=== PATIENT | female | born 1985 | race Asian ===

== ENCOUNTER 2018-12-27 20:18 | Outpatient (CLI) | payer BC ==
--- NOTE | 2018-12-27 20:30 | NUR ---
G1 at 32 weeks and 4 days arrives to unit with complaint of feeling pressure in RUQ of abdomen. Pt does not think it feels like contractions. Good movement and denies vaginal bleeding. Pt with a history of vaginal bleeding and had additional scans to look at cervical length. EFM and toco explained and applied. Bed in low and locked position. Call light within reach. Plan of care reviewed with patient and spouse. Admission assessment started.
[2018-12-27] MEDS ORDERED: PRENATAL MVI (20:44)
--- NOTE | 2018-12-27 20:50 | NUR ---
Per Dr. Carranza do not perform SVE. Pt with history of vaginal bleeding and was getting additional imaging done to determine cervical length.
[2018-12-27 21:00] VITALS: BP 110/70; PULSE 86; TEMP 98.2
--- NOTE | 2018-12-27 21:05 | NUR ---
IV started in left forearm, lactated ringers bolus infusing to gravity.
--- NOTE | 2018-12-27 22:20 | NUR ---
Pt reports feeling painless tightening when monitor shows contractions. Pt still has RUQ pain intermittently with some contractions. Category [address] Carranza notified, see physician notification. IV discontinued at this time. Monitors removed. Pt discharged home at 2220. Discharge instructions and return precautions reviewed with patient, pt verbalized understanding. Pt seen ambulating off unit with spouse.
== END 2018-12-27 22:20 | disposition home or self-care (01) ==
LOC: LDRO 20:18
DX: O62.9 Abnormality of forces of labor, unspecified (principal); Z3A.32 32 weeks gestation of pregnancy
CPT/HCPCS: J7120

== ENCOUNTER 2018-12-28 11:48 | Outpatient (CLI) | payer BC ==
[~2018-12-28] VITALS: Ht 165.1 cm; Wt 68.2 kg
[~2018-12-28 11:48] MED LIST: PRENATAL MVI
--- NOTE | 2018-12-28 11:55 | NUR ---
Presents to labor and delivery. States has not felt the baby move this morning. Monitor on, heart rate 148 with accelerations noted. Denies pain or discomfort at this time. Assessment done, questions offered and answered.
[2018-12-28 12:04] VITALS: BP 102/67; PULSE 85; TEMP 98.1
[2018-12-28 12:30] VITALS: BP 120/88; PULSE 98
--- NOTE | 2018-12-28 12:45 | NUR ---
Discharge instructions given, verbalizes understanding. 1250 Dismissed to home with spouse. Alert, stable, ambulatory.
== END 2018-12-28 12:50 | disposition home or self-care (01) ==
LOC: LDRO 11:48
DX: O36.8130 Decreased fetal movements, third trimester, not applicable or unspecified (principal); Z3A.32 32 weeks gestation of pregnancy

== ENCOUNTER 2019-02-08 03:24 | Outpatient (CLI) | payer BC ==
[~2019-02-08] VITALS: Ht 165.1 cm; Wt 73.2 kg
--- NOTE | 2019-02-08 03:45 | NUR ---
Pt arrived on unit via wheelchair escorted by and with complaints of contractions that woke her up at 2am. Pt also reports blood on TP when using the bathroom. Pt denies any leaking of fluid and reports normal movement. EFM and toco monitors started. Vital signs WNL. SVE by this RN 0/50/-2 with small amount of blood noted on glove after exam. Plan of care for labor assessment reviewed.
[2019-02-08 03:46] VITALS: BP 118/77; PULSE 73; TEMP 98.1
--- NOTE | 2019-02-08 04:53 | NUR ---
Spoke with Dr. Zavala for an update on pt's status with FHR tracing, SVE with no change and ctx pattern reviewed. Orders for discharge home with precautions and instructions received. Discharge information reviewed with pt and at the bedside. Both verbalized an understanding, agreed with the plan and states no questions or concerns at this time. Pt discharged home escorted off unit by and staff.
== END 2019-02-08 05:00 | disposition home or self-care (01) ==
LOC: LDRO 03:24
DX: O62.9 Abnormality of forces of labor, unspecified (principal); Z3A.38 38 weeks gestation of pregnancy

== ENCOUNTER 2019-02-08 07:58 | Inpatient (IN) | payer BC ==
[2019-02-08] VITALS (51 sets, daily range): BP systolic 87–142; BP diastolic 51–86; PULSE 70–139; TEMP 97.4–98.1
[~2019-02-08] VITALS: Ht 165.1 cm; Wt 73.2 kg
[2019-02-08 08:37] LABS: BASO # 0.1 (0.0-0.2); BASO % 0.4 % (0.0-2.0); EOS # 0.1 (0.0-0.7); EOS % 0.7 % (0-4.0); GRAN # 9.1 (1.4-6.5); GRAN % 77.4 % (42.2-75.2); HEMATOCRIT 37.6 % (37.0-47.0); HEMOGLOBIN 12.3 g/dl (12.5-16.0); LYMPH # 1.9 (1.2-3.4); LYMPH % 15.7 % (20.0-51.0); MEAN CELL VOLUME 82 fl (80.0-100.0); MEAN CORPUSCULAR HEMOGLOBIN 27 pg (27.0-31.0); MEAN CORPUSCULAR HGB CONC 33 g/dl (33.0-37.0); MEAN PLATELET VOLUME 10.3 fl (7.4-10.4); MONO # 0.6 (0.1-0.6); PLATELET COUNT 226 K/mm3 (130-400)
--- NOTE | 2019-02-08 08:40 | NUR ---
Patient feeling contraction pain on her right side. Repositioned patient to far right lateral and patient presses epidural dose button.
--- NOTE | 2019-02-08 08:54 | NUR ---
0750 PATIENT HERE FOR COMPLAINTS THAT CONTRACTIONS ARE GEETING MORE INTENSE. EFM ON FHT 125 BABY VERY ACTIVE. CONTRACTIONS 2-3 MINUTES APART AND PATIENT BREATHING THROUGH EACH ONE. SVE /-1. DR DILL UPDATED AND ORDERS TO ADMIT FOR LABOR. 0800 IV STARTED IN LEFT WRIST AT THIS TIME AND BLOOD DRAWN AND SENT TO LAB. 0805 LR BOLUS HUNG AT THIS TIME. Perri OG CALLED FOR EPIDURAL. ASSESSMENT COMPLETED. PATIENT SITS UP FOR EPIDURAL PLACEMENT. 0815 EPIDURAL PLACED BY Perri OG SALES BRANCH MANAGER AND PATIENT TOLERATES WELL. DENIES NEEDS. SEE Perri OG NOTES FOR QUESTIONS. CONSENTS SIGNED. FHT 125 AT BEDSIDE.
--- NOTE | 2019-02-08 09:02 | NUR ---
0830 REPORT GIVEN TO Isra SANCHEZ RN TO ASSUME CARE OF PATIENT
--- NOTE | 2019-02-08 09:50 | NUR ---
0950: Dr. Toledo at bedside. Plan of care reviewed with patient. AROM with small amount of clear fluid noted by Dr. Toledo at 0950. Pericare provided. SVE per Dr. Toledo . Patient repositioned to right lateral and resting comfortably.
--- NOTE | 2019-02-08 11:30 | NUR ---
1130: Pitocin started at 2 mu/min per Dr. Toledo order. Patient sitting up in bed resting without complaint at this time.
--- NOTE | 2019-02-08 12:26 | NUR ---
1226: Patient feeling pain and pressure in her vagina. Patient rating the pain a "9"/10. Patient has been pressing her epidural button. SVE 8/90/0, scalp stimulation noted with SVE. 1228: Patient vomits 200ml. Patient denies nausea after vomiting.
--- NOTE | 2019-02-08 12:45 | NUR ---
1245: Patient crying and feeling pain during contractions in her mid lower abdomen. SVE /0. Patient repositioned to far left lateral and Jo Evans CRNA notified of patient complaint.
--- NOTE | 2019-02-08 13:15 | NUR ---
1315: Jo Evans CRNA in room and assessed epidural catheter. Catheter removed and will continue with replacing epidural catheter. Patient sitting up at side of bed for epidural placement. 1322: Single shot given. Epidural catheter placed. Blood return in catheter. Catheter removed and new epidural catheter placed. 1335: Patient vomits 100ml. 1345: Blood pressure drops to 97/51, pulse 131. Patient feeling light headed. 1345: Ephedrine 10mg given IV. 1350: Patient vomits 100ml. 1351: Zofran given IV. 1355: VS stable. Patient resting in bed. Denies nausea or pain at this time.
--- NOTE | 2019-02-08 14:16 | NUR ---
1415: Blood pressure drop to 89/54, pulse 130. patient feeling nauseated and anxious. Jo Evans CRNA at nurses station and order received to give Ephedrine 10mg. 1416: Ephedrine 10mg given.
--- NOTE | 2019-02-08 14:39 | NUR ---
1439: Blood pressure 87/51, pulse 117. Ephedrine 10mg given IV. 1442: Patient repositioned to right lateral. FHR deceleration down to 105-110 bpm. Patient repositioned to far left lateral and FHR repositioned back to baseline.
--- NOTE | 2019-02-08 15:30 | NUR ---
1530: SVE /0. Dr. Toledo called and updated on SVE, FHR and contractions. 1531: Patient begins pushing with contractions.
--- NOTE | 2019-02-08 17:00 | NUR ---
1645: Patient taking break from pushing. 1700: Dr. Toledo at nurses station and reviews FHR, contractions, and maternal pulse. 1705: Dr. Toledo at bedside for delivery. Discussed with patient will continue with vacuum assist vaginal delivery. 1708: Patient bladder emptied by Dr. Toledo using red delmis. 1709: Vacuum on and patient begins pushing with contractions. 1711: Vacuum pop off. 1712: Vacuum on. 1716: Vacuum pop off. 1717: Vacuum on and last pop off. 1723: Spontaneous vaginal delivery of infant head immediately followed by body. Infant nose and mouth suctioned out using bulb syringe by Dr. Toledo. Infant umbilical cord clamped by Dr. Toledo and cut by father of baby. 1725: Spontaneous and intact delivery of placenta. Pitocin restarted at 333ml/hr. Fundus massaged, firm and down 1 from umbilicus. Second degree perineal laceration repaired. Ice pack to perineum and patient sitting up in bed. Dr. Toledo reviews materal vital signs. Patient sitting up in bed holding infant. See labor and delivery summary, doctor dictation and anesthesia records.
[2019-02-09 05:10] VITALS: BP 104/61; PULSE 83; TEMP 97.5
--- NOTE | 2019-02-09 06:32 | NUR ---
Report received from off going RN. Care assumed by this RN.
[2019-02-09 07:47] VITALS: BP 102/70; PULSE 96; TEMP 98.3
--- NOTE | 2019-02-09 10:45 | NUR ---
Initial visit; Early Childhood Education Worker offered congratulations to father of baby boy. Mother was indisposed.
[2019-02-09 11:46] VITALS: BP 107/64; PULSE 103; TEMP 97.6
[2019-02-09 16:38] VITALS: BP 103/69; PULSE 85; TEMP 98.3
[2019-02-09 20:23] VITALS: BP 103/67; PULSE 94; TEMP 97.7
[2019-02-10] MEDS ORDERED: IBU800 M1 PO (08:29)
[2019-02-10] MEDS ORDERED: PERCOCET 325 MG1 TA2 PO (08:29)
[2019-02-10 09:15] VITALS: BP 102/60; PULSE 79; TEMP 97.5
[2019-02-10 16:15] VITALS: BP 105/82; PULSE 96; TEMP 98.4
== END 2019-02-10 18:30 | disposition home or self-care (01) | DRG 807 ==
LOC: LDRO 07:58 → LDR 08:00 → LDRO 08:01 → LDR 08:01 → OB 21:30
PROVIDERS: Obstetrics & Gynecology; ADMIT Obstetrics & Gynecology
PROC: 10E0XZZ Delivery of Products of Conception, External Approach (ICD-10-PCS; principal; 2019-02-08)
PROC: 0KQM0ZZ Repair Perineum Muscle, Open Approach (ICD-10-PCS; 2019-02-08)
PROC: 10S07ZZ Reposition Products of Conception, Via Natural or Artificial Opening (ICD-10-PCS; 2019-02-08)
DX: O76 Abnormality in fetal heart rate and rhythm complicating labor and delivery (principal); Z37.0 Single live birth; O75.81 Maternal exhaustion complicating labor and delivery; O70.1 Second degree perineal laceration during delivery; Z3A.38 38 weeks gestation of pregnancy
CPT/HCPCS: J2400; J2405; J2590; J7120

== ENCOUNTER → 2019-02-15 | Outpatient (CLI) | payer BC ==
[~2019-02-15] MED LIST changes: +IBU800 M1 PO; +PERCOCET 325 MG1 TA2 PO
--- NOTE | 2019-02-15 12:55 | NUR ---
Pt, Francesca Orona, presents for outpatient consult with one week old baby boy, Lalo Naidu, and her spouse to have evaluated and milk production evaluated. Lalo was born by vacuum extraction on 02/08/[birth year] and weighed 7#3oz (3260 gms). Discharge weight was 6#15oz. He was re-admitted on 02/11/19 for hyperbilirubinemia and supplementation was initiated. Pt was seen during the re-admission for evaluation and Lalo was able to transfer 20ml. He has continued to breastfeed and be supplemented about 50ml formula/breastmilk combination per feeding since discharge from hospital on 02/13/19. Pt is able to pump about every other feeding, collecting 20-30ml. Today Lalo weighs 7#1.8oz (3228 gms). Baby breastfeeds bilaterally. After feeding Lalo has a gain of 28 gms (1oz). Lalo is then supplemented about 50ml formula by bottle. Pt provided handout about improving milk supply, reviewing diet, pumping, and herbal supplements. POC: Continue and supplement, work on milk supply. F/U: Pt advised to contact LC as her milk supply increases and Lalo starts to reject some of the supplement. Lalo has an appt. with Dr. Hardy this afternoon. Pt verbalizes understanding, questions invited and answered.
== END ==
LOC: OLC 12:36
DX: Z39.1 Encounter for care and examination of lactating mother (principal); Z71.89 Other specified counseling